=== PATIENT | male | born 1950 | race Caucasian/White ===

== ENCOUNTER 2017-11-05 14:48 | Emergency (ER) | payer MEDICARE, BC ==
[~2017-11-05] VITALS: Ht 172.7 cm; Wt 88.5 kg
[~2017-11-05 14:48] MED LIST: ASPIRIN EC325 MG PO
[2017-11-05] MEDS ORDERED: METHYLPREDNISOLO4 M1 PO (15:29)
[2017-11-05] MEDS ORDERED: MECLIZINE HCL25 MG PO (15:29)
[2017-11-05] MEDS ORDERED: ZOFRAN ODT4 MG PO (15:29)
[2017-11-05] MEDS ORDERED: ZITHROMAX250 MG PO (15:29)
== END 2017-11-05 16:03 | disposition home or self-care (01) ==
LOC: ED 14:48
DX: H83.01 Labyrinthitis, right ear (principal)
CPT/HCPCS: 99283

== ENCOUNTER 2021-03-08 11:47 | Day surgery (SDC) | payer MEDICARE, BC ==
[~2021-03-08] VITALS: Ht 172.7 cm; Wt 86.4 kg
[~2021-03-08 11:47] MED LIST changes: +COZAAR25 MG PO; +LIPITOR20 MG GT; +MECLIZINE HCL25 MG PO; +METHYLPREDNISOLO4 M1 PO; +ZITHROMAX250 MG PO; +ZOFRAN ODT4 MG PO
--- NOTE | 2021-03-08 14:04 | NUR ---
03/08/21 1404 Gema Holloway 1354 PATIENT ARRIVES TO PACU RESTING WITH EYES CLOSED. RESP EVEN AND UNLABORED, BUT HAS FREQUENT PERIODS OF APNEA. NEEDS FREQUENT REMINDERS TO TAKE A DEEP BREATH. DENIES PAIN OR NAUSEA. 1404 PATIENT CONTINUES TO NEED FREQUENT REMINDERS TO BREATHE, WITH FREQUENT PERIODS OF APNEA.
--- NOTE | 2021-03-09 12:17 | OR ---
[facility] [address] [place], [place] [address] Signed DATE OF OPERATION: 03/08/2021 SURGEON: Janessa Motley MD PREOPERATIVE DIAGNOSES: 1. Family history of colon cancer (father). 2. History of polyps. POSTOPERATIVE DIAGNOSES: 1. Sigmoid diverticulosis. 2. Polyps x3. PROCEDURE: Total colonoscopy to cecum with cold morcellation, polypectomy x2 and cold snare polypectomy x1. ANESTHESIA: Intravenous sedation, fentanyl 100 mcg and Versed 4 mg. 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 He is known to me from the past and is a patient of DAVID Lakhani. He last underwent colonoscopy by me in 2018, at which time he had a single hyperplastic polyp. He has undergone multiple colonoscopies prior to that, having detected adenomatous polyps in the past. He is symptom free currently. He is here for surveillance colonoscopy. He understands the risk of bleeding, infection, and perforation related to colonoscopy. FINDINGS: The prep was excellent. Complete colonoscopy was undertaken of the cecum. He had three polyps, one which is sessile and a bit larger in the mid ascending colon, a very small one in the cecum and a very small one in the rectosigmoid. The largest was excised with cold snare technique and the other two with cold morcellation technique. Diverticula were noted of the sigmoid and left colon as well. DESCRIPTION OF PROCEDURE: The patient was brought to the endoscopy suite and placed in the lateral decubitus position, given intravenous sedation to the point of slurred speech and nystagmus. Full cardiopulmonary monitoring was maintained. Digital rectal examination was normal. Electronically Signed By: JANESSA MOTLEY MD 03/09/21 1217 PATIENT NAME: SIVAKUMAR CARCAMO OPERATIVE REPORT DATE OF : 50 REPORT #: [id number] PHYSICIAN: JANESSA MOTLEY MD PCP: TOÑA RODRIGUEZ PAC REPORT IS CONFIDENTIAL AND NOT TO BE RELEASED WITHOUT AUTHORIZATION [facility] [address] [place], [place] [address] Signed An Olympus video colonoscope was passed in the rectum and manipulated throughout the colon noting diverticulosis of the sigmoid and left colon. The scope was ultimately passed to the cecum. The ileocecal valve and appendiceal orifice were identified and normal. The scope was withdrawn and a tiny polyp was noted at the cecum, which was excised with cold morcellation technique. The scope was further withdrawn and a larger sessile polyp was noted in the mid ascending colon. This was excised with cold snare technique. There was no untoward bleeding. Further withdrawal of the scope showed no abnormality of the rectosigmoid where a small polyp was noted, this was excised with cold morcellation technique as well. Retroflexed view of the rectum showed some mild hemorrhoidal changes but no other abnormality of concern. Scope was straightened, withdrawn and removed. The patient was taken to the recovery room in good condition. CONCLUDING DIAGNOSES: 1. Polyps x3. 2. Diverticulosis. PLAN: Recommend repeat colonoscopy in three years, sooner if clinically indicated. He will return to the ongoing care of DAVID Lakhani. MD PAT Huang/BRUCEL /[id number] cc: Toña Rodriguez PA-C Copies: TOÑA RODRIGUEZ ~ Electronically Signed By: JANESSA MOTLEY MD 03/09/21 1217 PATIENT NAME: SIVAKUMAR CARCAMO MICHAEL OPERATIVE REPORT DATE OF : 50 REPORT #: [id number] PHYSICIAN: JANESSA MOTLEY MD PCP: TOÑA RODRIGUEZ REPORT IS CONFIDENTIAL AND NOT TO BE RELEASED WITHOUT AUTHORIZATION
--- NOTE | 2021-03-16 09:23 | PATH ---
[facility] [address] [place], [place] [address] Signed SPECIMEN(S): A RIGHT COLON POLYP SPECIMEN(S): B RIGHT COLON POLYP SPECIMEN(S): C RECTOSIGMOID POLYP SPECIMEN SOURCE: A. RIGHT COLON POLYP B. RIGHT COLON POLYP C. RECTOSIGMOID POLYP CLINICAL HISTORY: 01/2018 hyperplastic polyp at 20 cm, history of colon cancer (father). Postop: Diverticulosis. MICROSCOPIC DESCRIPTION: Histologic sections of all submitted blocks are examined by light microscopy. These findings, together with the gross examination, support the pathologic diagnosis. FINAL PATHOLOGIC DIAGNOSIS: A. Colon, right, polypectomy: - Multiple fragments of tubular adenoma. - There is no evidence of high-grade dysplasia or malignancy. B. Colon, right, polypectomy: - Benign colonic mucosa with prominent intramucosal lymphoid aggregate, one fragment. - An additional fragment of colonic epithelium is within normal limits. - No evidence of neoplasia. C. Rectosigmoid, polypectomy: - Hyperplastic polyp. - There is no evidence of dysplasia or malignancy. COMMENT: Regarding specimen B, sections of colonic tissue demonstrate a benign intramucosal lymphoid aggregate. Intramucosal lymphoid aggregates can sometimes appear as polyps endoscopically. They have no clinical significance. There is no evidence of dysplasia or malignancy. TWK:samara:C2NR GROSS DESCRIPTION: Three specimens are received in three containers, labeled "RL." A. The specimen, labeled "RL, right colon polyp," is received in formalin and consists of two busch soft tissue fragment(s) that measure 0.2-0.3 cm in greatest PATIENT NAME: SIVAKUMAR CARCAMO PATHOLOGY DATE OF : 50 REPORT #: [id number] PHYSICIAN: TALA SANTANA PCP: KANE PISANO PAC REPORT IS CONFIDENTIAL AND NOT TO BE RELEASED WITHOUT AUTHORIZATION [facility] [address] [place], [place] [address] Signed dimension. The specimen is entirely submitted in cassette (A1). B. The specimen, labeled "RL, right colon polyp," is received in formalin and consists of two busch soft tissue fragment(s) that measure 0.2 cm in greatest dimension. The specimen is entirely submitted in cassette (B1). C. The specimen, labeled "RL, rectosigmoid polyp," is received in formalin and consists of one busch soft tissue fragment that measures 0.2 cm in greatest dimension. The specimen is entirely submitted in cassette (C1). JS (under the direct supervision of a pathologist) The Gross Description was prepared using a voice recognition system. The report was reviewed for accuracy; however, sound-alike word errors, addition and/or deletions may occur. If there is any question about this report, please contact Client Services. PERFORMING LABORATORY: The technical component was performed by [facility], [address] [place] [id number] (Elastic Assembler: Nuria Garcia MD; CLIA# [id number]). [facility], [address] [place] [address]. Diagnostician: Alber Etienne MD Pathologist Electronically Signed 03/16/2021 Copies: ~ PATIENT NAME: SIVAKUMAR CARCAMO PATHOLOGY DATE OF : 50 REPORT #: [id number] PHYSICIAN: TALA PATHOLOGY PCP: KANE PISANO PAC REPORT IS CONFIDENTIAL AND NOT TO BE RELEASED WITHOUT AUTHORIZATION
== END 2021-03-08 14:40 | disposition home or self-care (01) ==
LOC: OPS 11:47 → DS 11:50 → OPS 13:00
PROVIDERS: ATTEND Surgery
PROC: 0DBN8ZX Excision of Sigmoid Colon, Via Natural or Artificial Opening Endoscopic, Diagnostic (ICD-10-PCS; 2021-03-08)
PROC: 0DBH8ZX Excision of Cecum, Via Natural or Artificial Opening Endoscopic, Diagnostic (ICD-10-PCS; 2021-03-08)
PROC: 0DBK8ZX Excision of Ascending Colon, Via Natural or Artificial Opening Endoscopic, Diagnostic (ICD-10-PCS; principal; 2021-03-08 13:00)
DX: Z12.11 Encounter for screening for malignant neoplasm of colon (principal); K57.30 Diverticulosis of large intestine without perforation or abscess without bleeding; D12.2 Benign neoplasm of ascending colon; I10 Essential (primary) hypertension; E78.5 Hyperlipidemia, unspecified; Z86.010 Personal history of colon polyps; Z80.0 Family history of malignant neoplasm of digestive organs
CPT/HCPCS: 88305; 99153; G0500; J2250; J3010; J7121

== ENCOUNTER 2023-12-14 07:27 | Emergency (ER) | payer MEDICARE, BC ==
[~2023-12-14] VITALS: Ht 172.7 cm; Wt 88.6 kg
[2023-12-14] MEDS ORDERED: LORazepam 2 MG/ML VIAL IV ONE (07:45)
[2023-12-14] MEDS ORDERED: LABETALOL HCL 20 MG/4 ML VIAL IV ONE (07:45)
[2023-12-14 07:48] LABS: BASOPHILS 0.6 % (0-2); EOSINOPHILS 1.3 % (0-6); HEMATOCRIT 41.4 % (35.0-50.0); HEMOGLOBIN 13.7 g/dL (12.0-18.0); LYMPHOCYTES 28.3 % (24-44); MCH 29.4 (27-36); MCHC 33.1 g/dl (30-36); MCV 88.8 fl (81-99); NEUTROPHILS 61.8 % (39-80); PLATELET COUNT 354 K/uL (140-440); RBC 4.66 M/ul (4.3-5.7); RDW 14.1 (10.5-15.0)
[2023-12-14 08:01] LABS: ALBUMIN 4.1 g/dL (3.4-5.0); ALBUMIN/GLOBULIN RATIO 1.32 (1.1-2.4); BILIRUBIN, TOTAL 0.5 ng/dL (0.2-1.0); BUN/CREATININE RATIO 20.38 (6.0-28.6); CALCIUM 9.1 mg/dL (8.5-10.1); CREATININE, SERUM 1.03 mg/dL (0.70-1.30); INR 0.96 (0.80-1.30); PROTEIN, TOTAL 7.2 g/dL (6.4-8.2); PROTIME 12.4 Sec (11.2-14.2)
[2023-12-14 08:04] LABS: PARTIAL THROMBOPLASTIN TIME 27.1 Sec (22.9-41.3)
[2023-12-14] MEDS ORDERED: ondansetron HCL 4 MG/2 ML VIAL IV ONE (09:15)
[2023-12-14] MEDS ORDERED: ASPIRIN 81 MG CHEW PO ONE (10:15)
[2023-12-14] MEDS ORDERED: ATIVAN1 MG PO (10:15)
[2023-12-14] MEDS ORDERED: ONDANSETRON ODT8 MG PO (10:15)
[2023-12-14 10:31] VITALS: BP 130/79
--- NOTE | 2023-12-14 12:52 | EKG ---
[facility] [address] [facility] [place], [place] [address] Signed Normal sinus rhythm Normal ECG No previous ECGs available Confirmed by NATHANIEL BARGER MD ([id number]) on 12/14/2023 12:52:47 PM Electronically Signed By: NATHANIEL BARGER 12/14/23 1252 PATIENT NAME: DONASIVAKUMAR Electrocardiogram DATE OF : 50 PHYSICIAN: NATHANIEL BARGER REPORT #: [id number] REPORT IS CONFIDENTIAL AND NOT TO BE RELEASED WITHOUT AUTHORIZATION
== END 2023-12-14 10:33 | disposition home or self-care (01) ==
LOC: ED 07:27
PROVIDERS: Emergency Medicine
DX: R42 Dizziness and giddiness (principal); I10 Essential (primary) hypertension; Z79.899 Other long term (current) drug therapy
CPT/HCPCS: 36415; 70450; 70496; 70498; 80053; 85025; 85610; 85730; 93005; 93010; 96375; 99284-25; A9270; J2060; J2405; Q9967

== ENCOUNTER 2024-08-19 11:27 | Day surgery (SDC) | payer MEDICARE, BC ==
[~2024-08-19] VITALS: Ht 170.2 cm; Wt 89.0 kg
--- NOTE | ~2024-08-19 | OR ---
[facility] [address] [place], [place] [address] Draft DATE OF OPERATION: 08/19/2024 SURGEON: Janessa Motley MD PREOPERATIVE DIAGNOSES: 1. Family history of colon cancer (father). 2. History of polyps in 2020. POSTOPERATIVE DIAGNOSES: 1. Diverticulosis of sigmoid and elsewhere. 2. Polyps x1 (left colon). PROCEDURES: Total colonoscopy to cecum with cold morcellation polypectomy x1. ANESTHESIA: Intravenous sedation, fentanyl 100 mcg and Versed 5 mg. INDICATIONS FOR THE PROCEDURE: This 73-year-old man is a patient of Dr. Aaliyah Martinez. He has family history of colon cancer in his father. He last underwent colonoscopy three years ago, where he had three polyps, one of which was sessile. Pathology confirming tubular adenoma as well as hyperplastic polyp. He has no current symptoms of bleeding, diarrhea, or constipation. He is admitted at this time to undergo colonoscopy. He understands the risk of bleeding, infection, and perforation. FINDINGS: The prep was excellent. Complete colonoscopy was undertaken of the cecum. He had scattered diverticula of the sigmoid and elsewhere to the colon. There was a very small polyp of the left colon, which was excised with cold morcellation technique and affirmed to be an adenoma based on narrow-band imaging findings. There were no other findings of note. DESCRIPTION OF PROCEDURE: The patient was brought to the endoscopy suite and placed in lateral decubitus position given intravenous sedation to the point of slurred speech and nystagmus. Digital rectal examination was normal. An Olympus video colonoscope was passed into the rectum and manipulated throughout the colon, ultimately intubating the cecum itself. The ileocecal valve and appendiceal orifice were normal. The scope was withdrawn from that point. Examination throughout showed no abnormality other than scattered diverticula until PATIENT NAME: SIVAKUMAR CARCAMO OPERATIVE REPORT DATE OF : 50 REPORT #: [id number] PHYSICIAN: JANESSA MOTLEY MD PCP: AALIYAH MARTINEZ MD REPORT IS CONFIDENTIAL AND NOT TO BE RELEASED WITHOUT AUTHORIZATION [facility] [address] [place], [place] [address] Draft proximal descending colon, where a small adenomatous-appearing polyp was noted. To affirm that histology, narrow-band imaging was undertaken, which showed the lesion likely to be adenomatous. This was excised with cold morcellation technique. Further withdrawal showed only diverticulosis. Retroflexed view of the rectum was normal. Scope was removed. The patient was taken to the recovery room in good condition. CONCLUDING DIAGNOSIS: Polyps x1 and diverticulosis. PLAN: Recommend repeat colonoscopy in 5 years based on family history and history of polyps. He will return to the ongoing care of Dr. Aaliyah Martinez. MD PAT Huang/MODL /[id number] cc: Aaliyah Martinez MD Copies: AALIYAH MARTINEZ DMD ~ PATIENT NAME: SIVAKUMAR CARCAMO MICHAEL OPERATIVE REPORT DATE OF : 50 REPORT #: [id number] PHYSICIAN: JANESSA MOTLEY MD PCP: AALIYAH MARTINEZ MD REPORT IS CONFIDENTIAL AND NOT TO BE RELEASED WITHOUT AUTHORIZATION
[~2024-08-19 11:27] MED LIST changes: +ASPIRIN81 MG PO; +ATIVAN1 MG PO; +IBLOOD GLUCOSE TEST STRIP 1 EA TEST VI PRN; +LACTATED RINGER'S 1,000 ML IV SCH; +LIDOCAINE HCL 1% 5 ML SDV INJ ONE; +MIDAZOLAM HCL 5 MG/5 ML VIAL IV PRN; +ONDANSETRON ODT8 MG PO; +fentaNYL citrate 100 MCG/2 ML VIAL IV PRN
[2024-08-19 11:48] VITALS: BP 121/67
[2024-08-19] MEDS ORDERED: fentaNYL citrate 100 MCG/2 ML VIAL ONE (12:11)
[2024-08-19] MEDS ORDERED: MIDAZOLAM HCL 5 MG/5 ML VIAL ONE (12:11)
--- NOTE | 2024-08-19 14:09 | NUR ---
08/19/24 1409 Briana Zuñiga 1406-PATIENT ARRIVED TO PACU ON 2L NC RR EVEN PATIENT REACTIVE TO VERBAL STIMULI VERY DROWSY. LAYING LEFT LATERAL ABDOMEN SOFT. IVF INFUSING.
[2024-08-19 14:42] VITALS: BP 130/72
--- NOTE | 2024-08-23 12:52 | PATH ---
[facility] [address] [facility] [place], [place] [address] Signed SPECIMEN(S): A DESCENDING COLON POLYP SPECIMEN SOURCE: A. DESCENDING COLON POLYP v CLINICAL HISTORY: History of polyps, family history of colon cancer FINAL PATHOLOGIC DIAGNOSIS: Colon, descending, polypectomy: - Colonic mucosa with edema and mild hyperplastic changes, negative for dysplasia. BRP MICROSCOPIC EXAMINATION: Histologic sections of all submitted blocks are examined by light microscopy. These findings, together with the gross examination, support the pathologic diagnosis. GROSS DESCRIPTION: The specimen, labeled and designated "Teresa, descending colon polyp," is received in formalin and consists of six busch soft tissue fragments, ranging from 0.1-0.8 cm. Entirely submitted in (A1). VB (under the direct supervision of a pathologist) The Gross Description was prepared using a voice recognition system. The report was reviewed for accuracy; however, sound-alike word errors, addition and/or deletions may occur. If there is any question about this report, please contact Client Services. ADDITIONAL NOTES: Immunohistochemical and/or in situ hybridization studies if performed in this case included appropriate positive controls that reacted as expected. This test was developed and its performance characteristics determined by [facility]. It has not been cleared or approved by the U.S. Food and Drug Administration. The FDA has determined that such clearance or approval is not necessary. This test is used for clinical purposes. It should not be regarded as investigational or for research. [facility] is certified under the Clinical Laboratory Improvement Amendments of 1988 (CLIA) as qualified to perform high complexity clinical PATIENT NAME: SIVAKUMAR CARCAMO PATHOLOGY DATE OF : 50 REPORT #: [id number] PHYSICIAN: TALA SANTANA PCP: AALIYAH MARTINEZ MD REPORT IS CONFIDENTIAL AND NOT TO BE RELEASED WITHOUT AUTHORIZATION [address] [place], [place] [address] Signed laboratory testing. PERFORMING LABORATORY: Technical component was performed by [facility], [address] [place] [address] (CLIA# [id number]). Professional interpretation was performed by [facility], [address] [place] [address] (CLIA#: [id number]). Diagnostician: Kingsley Sigala MD Pathologist Electronically Signed 08/23/2024 Copies: ~ PATIENT NAME: SIVAKUMAR CARCAMO PATHOLOGY DATE OF : 50 REPORT #: [id number] PHYSICIAN: TALA SANTANA PCP: AALIYAH MARTINEZ MD REPORT IS CONFIDENTIAL AND NOT TO BE RELEASED WITHOUT AUTHORIZATION
== END 2024-08-19 14:50 | disposition home or self-care (01) ==
LOC: DS 11:27
PROVIDERS: ATTEND Surgery
PROC: 0DBG8ZZ Excision of Left Large Intestine, Via Natural or Artificial Opening Endoscopic (ICD-10-PCS; principal; 2024-08-19 12:15)
DX: Z12.11 Encounter for screening for malignant neoplasm of colon (principal); K63.5 Polyp of colon; K57.30 Diverticulosis of large intestine without perforation or abscess without bleeding; K21.9 Gastro-esophageal reflux disease without esophagitis; I10 Essential (primary) hypertension; E78.5 Hyperlipidemia, unspecified; Z86.0102 Personal history of hyperplastic colon polyps; Z79.899 Other long term (current) drug therapy; Z80.0 Family history of malignant neoplasm of digestive organs
CPT/HCPCS: 99153; G0500; J2250; J3010; J7121